=== PATIENT | female | born 1970 | race Caucasian/White ===

== ENCOUNTER 2018-01-07 15:30 | Outpatient (CLI) | payer OTHER ==
--- NOTE | 2018-01-08 10:32 | XRAY Report ---
THREE VIEW LEFT KNEE: 01/07/2018 CLINICAL INDICATION: Patellofemoral disorder. FINDINGS: AP, lateral, sunrise views of the left knee demonstrate no evidence of fracture or dislocation. The joint spaces are preserved. No effusion is present. IMPRESSION: NORMAL LEFT KNEE. TD: 01/08/2018 10:32
== END 2018-01-07 15:31 | disposition home or self-care (01) ==
LOC: DI.S 15:30
PROVIDERS: ATTEND Nurse Practitioner Family
DX: M22.2X2 Patellofemoral disorders, left knee (principal)

== ENCOUNTER 2020-05-31 07:00 | Outpatient (CLI) | payer OTHER ==
[2020-05-31 21:08] LABS: CANDIDA GROUP DNA NEGATIVE (NEGATIVE); CANDIDA KRUSEI DNA NEGATIVE (NEGATIVE); TRICHOMONAS VAGINALIS DNA NEGATIVE (NEGATIVE)
[2020-06-04 05:54] LABS: SOURCE VAG
== END 2020-05-31 23:59 | disposition home or self-care (01) ==
LOC: LAB.R 07:00
PROVIDERS: ATTEND Physician Assistant Medical
DX: N76.0 Acute vaginitis (principal); R30.0 Dysuria
CPT/HCPCS: 87529; 87661; 87801

== ENCOUNTER 2020-12-22 14:48 | Outpatient (CLI) | payer BC ==
--- NOTE | 2020-12-23 09:33 | Mammography Report ---
BILATERAL DIGITAL SCREENING MAMMOGRAM 3D/2D: 12/22/2020 CLINICAL: Routine screening. Routine screening. Comparison is made to exams dated: 07/21/2014 mammogram and 07/02/2012 mammogram - [facility]. There are scattered fibroglandular elements in both breasts. No significant masses, calcifications, or other findings are seen in either breast. There has been no significant interval change. IMPRESSION: NEGATIVE There is no mammographic evidence of malignancy. A 1 year screening mammogram is recommended. This exam was interpreted at Station ID: [id number]. NOTE: For mammograms, a report in lay terms will be sent to the patient. Approximately 15% of breast malignancies will not be visualized mammographically. In the management of a palpable breast mass, a negative mammogram must not discourage biopsy of a clinically suspicious lesion. Electronically Signed By: Nasim Mclean acr/penrad:12/22/2020 16:27:28 ACR BI-RADS Category 1: Negative 3341F PARENCHYMAL PATTERN: (A) - The breast(s) demonstrate(s) scattered fibroglandular densities. BI-RADS CATEGORY: (1) - 1 RECOMMENDATION: (ANNUAL) - Recommend routine annual screening mammography. [id number] 1 year screening LATERALITY: (B)
== END 2020-12-22 14:49 | disposition home or self-care (01) ==
LOC: DI.S 14:48
DX: Z12.31 Encounter for screening mammogram for malignant neoplasm of breast (principal)

== ENCOUNTER 2021-10-12 15:11 | Outpatient (CLI) | payer OTHER ==
--- NOTE | 2021-10-12 16:47 | XRAY Report ---
PROCEDURE: Foot 2 View BILAT INDICATIONS: RIGHT FOOT PAIN TECHNIQUE: 4 views of the bilateral feet were acquired. COMPARISON: None FINDINGS: Bones: No fractures or dislocations. Joint spaces are fairly well-preserved. No bony erosive changes are seen. Small bilateral plantar calcaneal enthesophytes are seen. Dorsal exostosis in distal porti on of left talus is also noted. No suspicious bony lesions. Soft tissues: No tibiotalar joint effusion. Achilles tendon appears normal. IMPRESSION: Small bilateral plantar calcaneal enthesophytes and exostosis over dorsal aspect of distal left talus which may represent an old injury. No acute fracture or dislocation. No bony erosive changes. No cande ss soft tissue abnormality. Reviewed by: Franklin Lopez MD on 10/12/2021 4:46 PM PST Approved by: Franklin Lopez MD on 10/12/2021 4:46 PM PST Station ID: [id number]
--- NOTE | 2021-10-12 21:37 | XRAY Report ---
PROCEDURE: Hand 2 View BILAT INDICATIONS: BILATERAL HAND PAIN TECHNIQUE: 2 views of the hand(s) acquired. COMPARISON: None FINDINGS: Bones: No fractures or dislocations. No suspicious bony lesions. No significant appreciable joint space narrowing. No erosions or particular osteophytes. Soft tissues: No suspicious soft tissue calcifications. IMPRESSION: No visualized cause of pain. Reviewed by: Maria Matute MD on 10/12/2021 9:36 PM PST Approved by: Maria Matute MD on 10/12/2021 9:36 PM PST Station ID: [id number]
== END 2021-10-12 15:12 | disposition home or self-care (01) ==
LOC: DI.S 15:11
PROVIDERS: ATTEND Nurse Practitioner Family
DX: M79.674 Pain in right toe(s) (principal); M77.32 Calcaneal spur, left foot; M77.31 Calcaneal spur, right foot; M89.9 Disorder of bone, unspecified; M79.642 Pain in left hand

== ENCOUNTER 2022-11-29 10:50 | Day surgery (SDC) | payer BC ==
[2022-11-29] MEDS ORDERED: LACTATED RINGERS 1,000 ML IV ONE (11:05)
--- NOTE | 2022-11-29 12:10 | ANESTHESIA ---
Pre-Anesthesia VS, & Labs - Diagnosis screening - Procedure colonoscopy Vital Signs: Temp Pulse Resp BP Pulse Ox O2 Flow Rate 36.7 C 67 14 117/77 97 0 11/29/22 11:05 11/29/22 11:05 11/29/22 11:05 11/29/22 11:05 11/29/22 11:05 11/29/22 11:05 Height: 5 ft 5 in Weight (kg): 76 kg Body Mass Index: 27.8 BMI Classification: Overweight - NPO Other (prep as directed) - Is Patient ?: No Home Medications and Allergies Albuterol Sulf [Ventolin Hfa Inhaler] 1 puffs PO PRN PRN 10/31/22 Escitalopram [Lexapro] 1 tab PO DAILY 10/31/22 Anes History & Medical History - Anesthetic History Anesthesia Complications: reports: No previous complications - Medical History Cardiovascular: reports: None Pulmonary: reports: Asthma Gastrointestinal: reports: None Urinary: reports: None Musculoskeletal: reports: None Endocrine/Autoimmune: reports: None Skin: reports: None Smoking Status: Never smoker Exam General: Alert, Oriented x3 Dental: WNL Mouth Opening: Greater than 4 Fingerbreadths Neck Mobility: Normal Mallampati classification: I Thyromental Distance: greater than 6 cm Respiratory: Lungs clear Cardiovascular: Regular rate Plan Anesthesia Type: Total IV Consent for Procedure(s) Verified and Reviewed: Yes Code Status: Attempt Resuscitation ASA classification: 2-Mild systemic disease Is this case an emergency?: No
[2022-11-29] MEDS ORDERED: PROPOFOL 500 MG/50 ML 500 MG/50 ML VIAL ONE (12:18)
[2022-11-29] MEDS ORDERED: LIDOCAINE-MPF 2% 5 ML VIAL ONE (12:24)
[2022-11-29] MEDS ORDERED: LACTATED RINGERS 600 ML IV ONE (12:44)
[2022-11-29 13:19] VITALS: BP 110/70
--- NOTE | 2022-11-29 14:06 | ANESTHESIA POST OP EVALUATION ---
Anesthesia Post Eval - Post Anesthesia Eval Vitals: Last Vital Signs Temp 36.4 C L 11/29/22 13:18 Pulse 52 L 11/29/22 13:18 Resp 19 11/29/22 13:18 BP 110/70 11/29/22 13:18 Pulse Ox 98 11/29/22 13:18 O2 Flow Rate 0 11/29/22 11:05 CV Function Including HR & BP: Stable Pain Control: Satisfactory Nausea & Vomiting: Negative Mental Status: Baseline Respiratory Status: Airway Patent Hydration Status: Satisfactory Anesthesia Complications: None
== END 2022-11-29 10:51 | disposition home or self-care (01) ==
LOC: SDS 10:50
PROVIDERS: ATTEND Surgery
DX: Z12.11 Encounter for screening for malignant neoplasm of colon (principal); K64.8 Other hemorrhoids; Z80.0 Family history of malignant neoplasm of digestive organs; J45.909 Unspecified asthma, uncomplicated
CPT/HCPCS: 45378; J7120

== ENCOUNTER 2023-01-03 07:54 | Outpatient (CLI) | payer BC ==
--- NOTE | 2023-01-04 09:09 | Mammography Report ---
BILATERAL DIGITAL SCREENING MAMMOGRAM 3D/2D: 01/03/2023 CLINICAL: Routine screening. Comparison is made to exams dated: 12/22/2020 mammogram and 07/21/2014 mammogram - [facility]. There are scattered areas of fibroglandular density in both breasts (category b / 25%-50% glandular t issue). No significant masses, calcifications, or other findings are seen in either breast. There has been no significant interval change. IMPRESSION: NEGATIVE There is no mammographic evidence of malignancy. A 1 year screening mammogram is recommended. Based on the Tyrer Cuzick model (a risk assessment model) the patients lifetime risk is 10.3% and he r 10 year risk is 2.8%. According to the ACR, ACS, and NCCN guidelines, an annual breast MRI exam sunday ng with mammogram is recommended if the patients lifetime risk is 20% or greater. This exam was interpreted at Station ID: [id number]. NOTE: For mammograms, a report in lay terms will be sent to the patient. Approximately 15% of breast malignancies will not be visualized mammographically. In the management of a palpable breast mass, a negative mammogram must not discourage biopsy of a clinically suspicious lesion. Electronically Signed By: Fredo salguero/ellie:01/03/2023 11:05:02 letter sent: No_Letter ACR BI-RADS Category 1: Negative 3341F PARENCHYMAL PATTERN: (A) - The breast(s) demonstrate(s) scattered fibroglandular densities. BI-RADS CATEGORY: (1) - 1 RECOMMENDATION: (ANNUAL) - Recommend routine annual screening mammography. [id number] 1 year screening LATERALITY: (B)
== END 2023-01-03 07:55 | disposition home or self-care (01) ==
LOC: DI.S 07:54
DX: Z12.31 Encounter for screening mammogram for malignant neoplasm of breast (principal)

== ENCOUNTER 2023-01-05 15:07 | Outpatient (CLI) | payer BC ==
--- NOTE | 2023-01-05 16:42 | DEXA Report ---
PROCEDURE: Dexa Spine and/or Hip INDICATIONS: POST MENOPAUSAL TECHNIQUE: Dual energy x-ray absorptiometry (DXA) was performed on a [employer] System. Regions measur ed are the AP Spine, femoral neck, and if needed forearm. COMPARISON: None. FINDINGS: Lumbar Spine: Bone Mineral Density 1.2 g/cm/cm,T score 0.1, normal bone density Left Femoral Neck: Bone Mineral Density 1.0 g/cm/cm, T score -0.2, normal bone density Impression: Normal bone density of the lumbar spine and left femoral neck. Patients with diagnosis of osteoporosis or osteopenia should have regular bone mineral density assess ment. For those eligible for Medicare, routine testing is allowed once every 2 years. Testing frequ ency can be increased for patients who have rapidly progressing disease or for those who are receivin g medical therapy to restore bone mass. Reviewed by: Beatrice Jorgensen MD on 01/05/2023 4:41 PM PST Approved by: Beatrice Jorgensen MD on 01/05/2023 4:41 PM PST Station ID: [id number]
== END 2023-01-05 15:08 | disposition home or self-care (01) ==
LOC: DI 15:07
PROVIDERS: ATTEND Nurse Practitioner Family
DX: Z78.0 Asymptomatic menopausal state (principal)